=== PATIENT | male | born 1955 | race Caucasian/White ===

== ENCOUNTER 2023-07-06 11:52 | Outpatient (OUT) | payer MEDICARE, SELFPAY ==
--- NOTE | 2023-07-06 12:00 | XR_ITS ---
[address] [address] Patient Name: SOHAIL MENDOZA MRN: [id number] date: 1955 Sex: M Assigned Patient Location: RAD Current Patient Location: Accession/Order Number: [id number] Exam Date: 07/06/2023 12:04 Report Date: 07/08/2023 06:23 At the request of: PORTIA BARRIENTOS Procedure: XR lumbar spine min 4V Exam: Radiographs: XR lumbar spine min 4V Reason for exam: Lumbago with sciatica M54.4 Comparison: None XR/XR lumbar spine min 4V IMPRESSION: No radiographically evident lumbar spine fractures. Grade 1 anterolisthesis of L4 on L5. No normal grade 1 retrolisthesis of L1 on L2 and L2 on L3. Lumbar spine degenerative changes with relatively preserved intervertebral disc heights. Remainder unremarkable. Electronically authenticated by: YARELY HORTON Date: 07/08/2023 06:23
== END 2023-07-06 11:53 | disposition home or self-care (01) ==
LOC: RAD 11:55
PROVIDERS: PCP Internal Medicine; Visit Provider Physician Assistant
DX: M54.40 Lumbago with sciatica, unspecified side (principal)
CPT/HCPCS: 72110

== ENCOUNTER 2023-08-01 07:40 | Outpatient (OUT) | payer MEDICARE, SELFPAY ==
--- NOTE | 2023-08-01 07:46 | US_ITS ---
The [address] [address] Patient Name: SOHAIL MENDOZA MRN: [id number] date: 1955 Sex: M Assigned Patient Location: US Current Patient Location: Accession/Order Number: [id number] Exam Date: 08/01/2023 08:00 Report Date: 08/01/2023 09:16 At the request of: MONA CORNELIUS Procedure: US prostate EXAMINATION: US prostate HISTORY: Prostate Pain N42.81 COMPARISON: No relevant comparison available. TECHNIQUE: Ultrasound exam for the prostate with an endorectal transducer was performed utilizing real-time and color duplex Doppler sonography. FINDINGS: ESTIMATED SIZE: 4.1 x 3.1 x 4.0 cm (26.2 cc) APPEARANCE: Heterogeneous prostate with 1.8 x 1.8 x 1.7 cm area protruding into base of bladder. No definable mass. US/US prostate IMPRESSION: 1. Heterogeneous prostate protruding into base of bladder. 2. Grade 1 (less than 30 cc). 3. Patient's PSA level is unknown. Electronically authenticated by: MARY FRAZIER Date: 08/01/2023 09:16
== END 2023-08-01 07:41 | disposition home or self-care (01) ==
LOC: US 07:41
PROVIDERS: PCP Internal Medicine; Visit Provider Nurse Practitioner Family
DX: N42.81 Prostatodynia syndrome (principal)
CPT/HCPCS: 76872

== ENCOUNTER 2024-01-09 10:04 | Outpatient (OUT) | payer MEDICARE, SELFPAY ==
--- NOTE | 2024-01-09 10:10 | XR_ITS ---
The [address] [address] Patient Name: SOHAIL MENDOZA MRN: [id number] date: 1955 Sex: M Assigned Patient Location: [facility] Current Patient Location: [facility] Accession/Order Number: [id number] Exam Date: 01/09/2024 10:15 Report Date: 01/09/2024 15:41 At the request of: TIMMY PRESTON Procedure: XR cervical spine 2-3V EXAMINATION: XR cervical spine 2-3V HISTORY: Neck Muscle Spasm M62.838 COMPARISON: No relevant comparison available. FINDINGS: BONES: 2 mm anterolisthesis of C4 on C5. Moderate degenerative spondylosis and facet osteoarthropathy DISC SPACES: Moderate disc space narrowing C5-C7 with endplate sclerosis PARASPINOUS: Negative. No paraspinous abnormality is seen. OTHER: Negative. XR/XR cervical spine 2-3V IMPRESSION: Moderate degenerative changes 2 mm anterolisthesis of C4 Electronically authenticated by: RATNA BYRD Date: 01/09/2024 15:41
== END 2024-01-09 10:05 | disposition home or self-care (01) ==
LOC: RAD 10:06
PROVIDERS: PCP Internal Medicine; Visit Provider Internal Medicine
DX: M62.838 Other muscle spasm (principal); M54.2 Cervicalgia; M50.30 Other cervical disc degeneration, unspecified cervical region
CPT/HCPCS: 72040